=== PATIENT | male | born 1975 | race Caucasian/White ===

== ENCOUNTER 2024-12-06 01:14 | Emergency (ER) | payer SELFPAY ==
[~2024-12-06] VITALS: Ht 160 cm; Wt 85.0 kg
[2024-12-06 01:39] VITALS: BP 112/59; PULSE 97; RESP 18; TEMP 35.9; O2SAT 98
== END 2024-12-06 03:34 | disposition left against medical advice (07) ==
LOC: ER 01:31
DX: R05.9 Cough, unspecified (principal)
CPT/HCPCS: 99283